=== PATIENT | female | born 1995 | race Caucasian/White ===

== ENCOUNTER 2020-08-24 17:16 | Emergency (ER) | payer OTHER ==
[~2020-08-24 17:16] MED LIST: MOTRIN600 MG PO
[2020-08-24] MEDS ORDERED: NORCO 5-325 TA1 EACH PO (20:42)
== END 2020-08-24 20:56 | disposition home or self-care (01) ==
LOC: FER 17:16
DX: S67.21XA Crushing injury of right hand, initial encounter (principal); S67.192A Crushing injury of right middle finger, initial encounter; S67.194A Crushing injury of right ring finger, initial encounter; S67.196A Crushing injury of right little finger, initial encounter; S60.221A Contusion of right hand, initial encounter; Z23 Encounter for immunization; W31.89XA Contact with other specified machinery, initial encounter; Y92.89 Other specified places as the place of occurrence of the external cause; Y99.0 Civilian activity done for income or pay
CPT/HCPCS: 73130; 90471; 90715

== ENCOUNTER 2020-09-22 12:22 | Emergency (ER) | payer OTHER ==
[~2020-09-22 12:22] MED LIST changes: +NORCO 5-325 TA1 EACH PO
[2020-09-22 13:24] LABS: BASOPHIL 0.5 % (0-2); EOSINOPHIL 1.7 % (0-5); HCT 34.5 % (37.0-47.0); HGB 12.4 g/dl (12.5-16.0); LYMPHOCYTE 22.3 % (15-48); MCH 31.6 pg (25.0-31.0); MCHC 35.9 g/dL (32.0-36.0); MCV 87.8 fL (78.0-100.0); MONOCYTE 7.4 % (0-12); MPV 9.2 fL (6.0-9.5); NEUTROPHIL 67.7 % (41-80); NRBC 0; PLT 291 K/uL (150-400); RBC 3.93 M/uL (4.20-5.40); RDW 12.4 % (11.5-14.0)
[2020-09-22 13:44] LABS: BILIRUBIN NEGATIVE (NEGATIVE); BLOOD NEGATIVE Ery/uL (NEGATIVE); CLARITY CLOUDY (CLEAR); COLOR YELLOW (YELLOW); GLUCOSE (U) NORMAL (NORMAL); LEUKOCYTES NEGATIVE Leu/uL (NEGATIVE); NITRITE NEGATIVE (NEGATIVE); PROTEIN NEGATIVE (NEGATIVE); SPECIFIC GRAVITY 1.015 (1.001-1.030); UROBILINOGEN 0.2 mg/dL (0.2-1.0)
[2020-09-22 14:00] LABS: ALBUMIN 3.4 g/dL (3.4-5.0); BILIRUBIN - TOTAL 0.4 mg/dL (0.2-1.0); BUN/CREAT RATIO (CALC) 15.2 RATIO; CREATININE 0.46 mg/dL (0.51-0.95); GLOBULIN (CALCULATION) 4.2 g/dL; POTASSIUM 3.6 mmol/L (3.5-5.1); TOTAL PROTEIN 7.6 g/dL (6.4-8.2)
== END 2020-09-22 15:03 | disposition home or self-care (01) ==
LOC: FER 12:22
PROVIDERS: Nurse Practitioner Family
DX: O21.0 Mild hyperemesis gravidarum (principal); Z3A.12 12 weeks gestation of pregnancy; Z91.040 Latex allergy status
CPT/HCPCS: 36415; 80053; 81003; 84702; 85025; 99284; J7030

== ENCOUNTER 2020-10-26 16:50 | Emergency (ER) | payer OTHER ==
[2020-10-26 17:33] LABS: BILIRUBIN NEGATIVE (NEGATIVE); BLOOD NEGATIVE Ery/uL (NEGATIVE); CLARITY HAZY (CLEAR); COLOR YELLOW (YELLOW); GLUCOSE (U) NORMAL (NORMAL); LEUKOCYTES NEGATIVE Leu/uL (NEGATIVE); NITRITE NEGATIVE (NEGATIVE); PROTEIN NEGATIVE (NEGATIVE); UROBILINOGEN 0.2 mg/dL (0.2-1.0); pH 8.5 (5.0-9.0)
[2020-10-26 17:33] LABS: BASOPHIL 0.6 % (0-2); EOSINOPHIL 1.2 % (0-5); HCT 30.9 % (37.0-47.0); HGB 11.2 g/dl (12.5-16.0); LYMPHOCYTE 20.5 % (15-48); MCH 32.2 pg (25.0-31.0); MCHC 36.2 g/dL (32.0-36.0); MCV 88.8 fL (78.0-100.0); MPV 9.1 fL (6.0-9.5); NEUTROPHIL 69.2 % (41-80); NRBC 0; PLT 284 K/uL (150-400); RBC 3.48 M/uL (4.20-5.40); RDW 12.9 % (11.5-14.0); WBC 9.9 K/uL (4.0-10.5)
[2020-10-26 17:52] LABS: BILIRUBIN - TOTAL 0.4 mg/dL (0.2-1.0); BUN/CREAT RATIO (CALC) 14.6 RATIO; CREATININE 0.48 mg/dL (0.51-0.95); GLOBULIN (CALCULATION) 4.1 g/dL; POTASSIUM 3.6 mmol/L (3.5-5.1); TOTAL PROTEIN 7.1 g/dL (6.4-8.2)
== END 2020-10-26 18:43 | disposition home or self-care (01) ==
LOC: FER 16:50
PROVIDERS: Emergency Medicine
DX: O21.0 Mild hyperemesis gravidarum (principal); Z3A.14 14 weeks gestation of pregnancy
CPT/HCPCS: 36415; 80053; 81003; 85025; J2405; J7120

== ENCOUNTER 2021-04-18 20:08 | Inpatient (IN) | payer OTHER ==
[~2021-04-18] VITALS: Ht 144.8 cm; Wt 56.7 kg
[2021-04-18 23:26] LABS: AMPHETAMINES NEGATIVE (NEGATIVE); BARBITURATES NEGATIVE (NEGATIVE); ECSTASY (MDMA) NEGATIVE (NEGATIVE); MARIJUANA (THC) NEGATIVE (NEGATIVE); METHADONE NEGATIVE (NEGATIVE); OPIATES NEGATIVE (NEGATIVE); OXYCODONE NEGATIVE (NEGATIVE)
[2021-04-18 23:47] LABS: HCT 39.5 % (37.0-47.0); HGB 13.4 g/dl (12.5-16.0); MCH 31.2 pg (25.0-31.0); MCHC 33.9 g/dL (32.0-36.0); MCV 91.9 fL (78.0-100.0); MPV 9.6 fL (6.0-9.5); RBC 4.3 M/uL (4.20-5.40); RDW 13.6 % (11.5-14.0); WBC 11.4 K/uL (4.0-10.5)
[2021-04-21 07:56] LABS: HCT 29.9 % (37.0-47.0); HGB 9.7 g/dl (12.5-16.0); MCHC 32.4 g/dL (32.0-36.0); MCV 95.5 fL (78.0-100.0); MPV 9.5 fL (6.0-9.5); RBC 3.13 M/uL (4.20-5.40); RDW 13.8 % (11.5-14.0); WBC 17.5 K/uL (4.0-10.5)
[2021-04-22] MEDS ORDERED: FEOSOL325 MG PO (12:28)
[2021-04-22] MEDS ORDERED: SIMETHICONE80 MG PO (12:28)
[2021-04-22] MEDS ORDERED: COLACE100 MG PO (12:28)
== END 2021-04-22 13:00 | disposition home or self-care (01) | DRG 788 ==
LOC: FOB 20:08
PROVIDERS: ADMIT Specialist
PROC: 10D00Z1 Extraction of Products of Conception, Low, Open Approach (ICD-10-PCS; principal; 2021-04-18)
PROC: 3E0P7VZ Introduction of Hormone into Female Reproductive, Via Natural or Artificial Opening (ICD-10-PCS; 2021-04-18)
PROC: 0U7C7ZZ Dilation of Cervix, Via Natural or Artificial Opening (ICD-10-PCS; 2021-04-18)
DX: O33.1 Maternal care for disproportion due to generally contracted pelvis (principal); Z37.0 Single live birth; Z3A.40 40 weeks gestation of pregnancy; Z20.822 Contact with and (suspected) exposure to COVID-19; O48.0 Post-term pregnancy; O62.1 Secondary uterine inertia; O99.02 Anemia complicating childbirth; O99.344 Other mental disorders complicating childbirth; F41.9 Anxiety disorder, unspecified
CPT/HCPCS: 36415; 80305; 86850; 86900; 86901; 87070; 87075; 87077; 87186; J0456; J0595; J0690; J1885; J2001; J2274; J2300; J2370; J2405; J7050; J7120; U0002

== ENCOUNTER 2021-08-26 01:10 | Emergency (ER) | payer OTHER ==
[~2021-08-26 01:10] MED LIST changes: +COLACE100 MG PO; +FEOSOL325 MG PO; +SIMETHICONE80 MG PO
[2021-08-26 01:40] LABS: BASOPHIL 0.8 % (0-2); EOSINOPHIL 3.1 % (0-5); HGB 14.1 g/dl (12.5-16.0); LYMPHOCYTE 32.9 % (15-48); MCH 30.6 pg (25.0-31.0); MCHC 35.3 g/dL (32.0-36.0); MCV 86.8 fL (78.0-100.0); MONOCYTE 8.1 % (0-12); MPV 8.7 fL (6.0-9.5); NEUTROPHIL 54.8 % (41-80); NRBC 0; PLT 324 K/uL (150-400); RBC 4.61 M/uL (4.20-5.40); RDW 11.8 % (11.5-14.0)
[2021-08-26 01:51] LABS: ALBUMIN 3.9 g/dL (3.4-5.0); BILIRUBIN - TOTAL 0.3 mg/dL (0.2-1.0); BUN/CREAT RATIO (CALC) 23.1 RATIO; CREATININE 0.65 mg/dL (0.51-0.95); GLOBULIN (CALCULATION) 3.7 g/dL; POTASSIUM 4.1 mmol/L (3.5-5.1); TOTAL PROTEIN 7.6 g/dL (6.4-8.2)
[2021-08-26 02:15] LABS: BILIRUBIN NEGATIVE (NEGATIVE); BLOOD NEGATIVE Ery/uL (NEGATIVE); CLARITY CLEAR (CLEAR); COLOR YELLOW (YELLOW); GLUCOSE (U) NORMAL (NORMAL); LEUKOCYTES NEGATIVE Leu/uL (NEGATIVE); NITRITE NEGATIVE (NEGATIVE); PROTEIN NEGATIVE (NEGATIVE); UROBILINOGEN 0.2 mg/dL (0.2-1.0); pH 6.5 (5.0-9.0)
[2021-08-26 02:16] LABS: CORONAVIRUS 2019 SARS-COV-2 NEGATIVE (NEGATIVE); INFLUENZA A NAA NEGATIVE (NEGATIVE)
[2021-08-26] MEDS ORDERED: ONDANSETRON ODT4 MG PO (03:31)
== END 2021-08-26 03:45 | disposition home or self-care (01) ==
LOC: FER 01:10
PROVIDERS: Emergency Medicine
DX: R10.9 Unspecified abdominal pain (principal); Z20.822 Contact with and (suspected) exposure to COVID-19; Z91.040 Latex allergy status
CPT/HCPCS: 36415; 80053; 81003; 83690; 85025; J1170; J2405; J7030; Q9967; U0002

== ENCOUNTER 2021-08-31 04:21 | Emergency (ER) | payer OTHER ==
[~2021-08-31 04:21] MED LIST changes: +ONDANSETRON ODT4 MG PO
[2021-08-31 05:41] LABS: BILIRUBIN NEGATIVE (NEGATIVE); BLOOD NEGATIVE Ery/uL (NEGATIVE); CLARITY CLEAR (CLEAR); COLOR YELLOW (YELLOW); GLUCOSE (U) NORMAL (NORMAL); LEUKOCYTES NEGATIVE Leu/uL (NEGATIVE); NITRITE NEGATIVE (NEGATIVE); PROTEIN NEGATIVE (NEGATIVE); SPECIFIC GRAVITY >=1.030 (1.001-1.030); UROBILINOGEN 0.2 mg/dL (0.2-1.0)
== END 2021-08-31 06:33 | disposition home or self-care (01) ==
LOC: FER 04:21
PROVIDERS: Emergency Medicine
DX: R10.9 Unspecified abdominal pain (principal)
CPT/HCPCS: 81003; 99284

== ENCOUNTER 2021-09-08 02:09 | Emergency (ER) | payer OTHER ==
[2021-09-08 02:27] LABS: BASOPHIL 0.8 % (0-2); EOSINOPHIL 2.7 % (0-5); HCT 38.3 % (37.0-47.0); HGB 13.4 g/dl (12.5-16.0); MCH 30.4 pg (25.0-31.0); MCV 86.8 fL (78.0-100.0); MONOCYTE 7.7 % (0-12); MPV 8.8 fL (6.0-9.5); NEUTROPHIL 50.6 % (41-80); NRBC 0; PLT 358 K/uL (150-400); RBC 4.41 M/uL (4.20-5.40); RDW 11.7 % (11.5-14.0); WBC 9.7 K/uL (4.0-10.5)
[2021-09-08 02:47] LABS: ALBUMIN 3.7 g/dL (3.4-5.0); BILIRUBIN - TOTAL 0.3 mg/dL (0.2-1.0); BUN/CREAT RATIO (CALC) 34.7 RATIO; CREATININE 0.49 mg/dL (0.51-0.95); TOTAL PROTEIN 7.7 g/dL (6.4-8.2)
[2021-09-08 04:04] LABS: BILIRUBIN NEGATIVE (NEGATIVE); BLOOD NEGATIVE Ery/uL (NEGATIVE); CLARITY CLEAR (CLEAR); COLOR YELLOW (YELLOW); GLUCOSE (U) NORMAL (NORMAL); LEUKOCYTES NEGATIVE Leu/uL (NEGATIVE); NITRITE NEGATIVE (NEGATIVE); PROTEIN NEGATIVE (NEGATIVE); SPECIFIC GRAVITY 1.015 (1.001-1.030); UROBILINOGEN 0.2 mg/dL (0.2-1.0)
== END 2021-09-08 05:35 | disposition home or self-care (01) ==
LOC: FER 02:09
PROVIDERS: Emergency Medicine
DX: K80.80 Other cholelithiasis without obstruction (principal); Z91.040 Latex allergy status
CPT/HCPCS: 36415; 80053; 81003; 83690; 84145; 85025; J1170; J1885; J2405; J7030; Q9967